=== PATIENT | male | born 1980 | race African-American/Black ===

== ENCOUNTER 2018-03-23 15:37 | Emergency (ER) | payer SELFPAY ==
[~2018-03-23] VITALS: Ht 175.3 cm; Wt 94.0 kg
[2018-03-23 16:20] VITALS: BP 118/63
[2018-03-23] MEDS ORDERED: IBUPROFEN 600MG TABLET PO ONE (16:30)
== END 2018-03-23 16:24 | disposition home or self-care (01) ==
LOC: ER 15:37
DX: S29.012A Strain of muscle and tendon of back wall of thorax, initial encounter (principal); V49.49XA Driver injured in collision with other motor vehicles in traffic accident, initial encounter; Y93.89 Activity, other specified; Y92.89 Other specified places as the place of occurrence of the external cause; Y99.8 Other external cause status
CPT/HCPCS: 99283